=== PATIENT | female | born 1975 | race American Indian/Alaskan Native ===

== ENCOUNTER 2016-11-13 11:06 | Outpatient (CLI) | payer BC ==
--- NOTE | 2016-11-13 15:36 | Mammography Report ---
BILATERAL DIGITAL SCREENING MAMMOGRAM WITH CAD:11/13/16 CLINICAL: Baseline screening. FINDINGS: The breasts are heterogeneously dense, which may obscure small masses. Right asymmetries require additional imaging. No architectural distortion or suspicious calcifications. The left breast is negative. IMPRESSION: Right asymmetries requiring further workup. BI-RADS CATEGORY: 0 -- Needs Additional Imaging RECOMMENDATION: Recall for right spot compression views and right breast ultrasound. ACR BI-RADS MAMMOGRAPHIC CODES: 0 = Needs additional imaging evaluation; 1 = Negative; 2 = Benign; 3 = Probably benign; 4 = Suspicious; 5 = Malignant; 6 = Known biopsy-proven malignancy COMMENT: 1. Dense breast tissue, i.e., adenosis, fibrocystic changes, etc., may obscure an underlying neoplasm. 2. Approximately 10% of cancers are not detected with mammography. 3. A negative mammography report should not delay biopsy if a clinically suspicious mass is present.
== END 2016-11-13 11:07 | disposition home or self-care (01) ==
LOC: SPVWC 11:06
PROVIDERS: ATTEND Obstetrics & Gynecology
DX: Z12.31 Encounter for screening mammogram for malignant neoplasm of breast (principal)
CPT/HCPCS: 77067; G0202

== ENCOUNTER 2016-11-26 09:40 | Outpatient (CLI) | payer BC ==
--- NOTE | 2016-11-26 15:27 | Mammography Report ---
RIGHT DIGITAL DIAGNOSTIC MAMMOGRAM and RIGHT BREAST ULTRASOUND: 11/26/16 09:40:00 CLINICAL: Recalled for asymmetries. COMPARISON:11/13/16 screening FINDINGS: ML and spot compression CC views were performed. Circumscribed densities persist on the spot image and circumscribed densities are identified on the lateral view. Ultrasound of the right breast (including all four quadrants and the retroareolar area) was performed and demonstrated multiple benign cysts. A cyst at 10 o'clock 5 cm from the nipple measures 8 x 5 x 7 mm and correlates with an upper-outer asymmetry. A benign cyst at 1 o'clock 6 cm from the nipple measures 1.7 x 0.8 x 1.1 cm and correlates with the inner mammographic asymmetry on the CC view. A cyst at 8 o'clock 4 cm from the nipple measures 1.2 x 0.6 x 1.1 cm. A cystic cluster at 1 o'clock 60 m from the nipple measures 1.7 x 0.8 x 1.1 cm and a bilobed retroareolar cyst measures 1.0 x 0.8 x 0.5 cm. A complex cyst versus solid mass at 12:30 o'clock 7 cm from the nipple measures 1.2 x 0.7 x 1.2 cm. There is no definite mammographic correlate for this lesion. IMPRESSION: 1. A 1.2 cm complex cyst versus solid mass at 12:30 o'clock 7 cm from the nipple. Recommend ultrasound guided needle aspiration and ultrasound guided needle biopsy if it is determined to be a solid mass. 2. Multiple additional right benign cysts. BI-RADS CATEGORY: 4A--Mildly Suspicious ACR BI-RADS MAMMOGRAPHIC CODES: 0 = Needs additional imaging evaluation; 1 = Negative; 2 = Benign; 3 = Probably benign; 4 = Suspicious; 5 = Malignant; 6 = Known biopsy-proven malignancy COMMENT: 1. Dense breast tissue, i.e., adenosis, fibrocystic changes, etc., may obscure an underlying neoplasm. 2. Approximately 10% of cancers are not detected with mammography. 3. A negative mammography report should not delay biopsy if a clinically suspicious mass is present. COMMENT: Patient follow-up letters are generated via our [employer] application.
== END 2016-11-26 09:41 | disposition home or self-care (01) ==
LOC: SPVWC 09:40
PROVIDERS: ATTEND Obstetrics & Gynecology
DX: N60.01 Solitary cyst of right breast (principal)
CPT/HCPCS: 76641; G0206

== ENCOUNTER 2016-12-10 14:05 | Outpatient (CLI) | payer BC ==
--- NOTE | 2016-12-10 15:23 | Mammography Report ---
RIGHT DIGITAL DIAGNOSTIC MAMMOGRAM: 12/10/16 14:05:00 CLINICAL: For clip placement immediately status post ultrasound biopsy. COMPARISON:11/26/16 FINDINGS: A biopsy clip is now identified at 12:30 o'clock and correlates with the previously described mass. IMPRESSION: Concordant clip placement status post ultrasound biopsy. BI-RADS CATEGORY: 4--Suspicious Pathology pending.
--- NOTE | 2016-12-10 16:40 | Ultrasound Report ---
ULTRASOUND GUIDED NEEDLE CORE BIOPSY RIGHT BREAST WITH CLIP PLACEMENT: 12/10/16 CLINICAL: Right breast mass at 12:30 o'clock 7 cm from the nipple. COMPARISON :11/26/16 FINDINGS: The procedure was explained to the patient and informed consent was obtained. Ultrasound demonstrated the previously described lesion. I marked the breast with a felt tip marker and a time out was called. The skin was prepped with Betadine and anesthetized with 1% lidocaine. I attempted unsuccessfully to aspirate fluid from the lesion with a 20-gauge needle. Needle core biopsy was then performed through a tiny dermatotomy using ultrasound guidance, 2% lidocaine with epinephrine for deep anesthesia and a 14-gauge Achieve biopsy device. 3 cores were obtained and placed in formalin. A clip was deployed within the mass. The patient tolerated the procedure well and there were no apparent complications. Hemostasis was achieved with minimal pressure and a sterile dressing was applied. A two view mammogram demonstrated satisfactory placement of the clip. She left the department in good condition and was given instructions for wound care and followup. IMPRESSION: Uncomplicated ultrasound guided needle core biopsy with clip placement right breast.
== END 2016-12-10 14:06 | disposition home or self-care (01) ==
LOC: SPVWC 14:05
PROVIDERS: ATTEND Obstetrics & Gynecology
DX: N63 Unspecified lump in breast (principal); R92.0 Mammographic microcalcification found on diagnostic imaging of breast
CPT/HCPCS: 19083; A4648; G0206; 88305